=== PATIENT | male | born 1945 | race Caucasian/White ===

== ENCOUNTER → 2019-05-30 11:19 | Outpatient (CLI) | payer MEDICARE, OTHER, SELFPAY ==
--- NOTE | ~2019-05-30 | XR_ITS ---
XR chest 2V DATE: 05/30/2019 11:38 INDICATION: Pneumonia TECHNIQUE: 2 views COMPARISON: 09/25/2003 AP chest FINDINGS: Mild cardiomegaly. No hilar or mediastinal enlargement. No pulmonary infiltrate or consolid ation, pleural effusion or pulmonary vascular congestion or pneumothorax. Diffuse osteopenia. IMPRESSION: Mild cardiac megaly No active pulmonary disease Reviewed, dictated and finalized at location B.
== END ==
PROVIDERS: PCP Family Medicine; Visit Provider Family Medicine
DX: J18.9 Pneumonia, unspecified organism (principal); I51.7 Cardiomegaly
CPT/HCPCS: 71046

== ENCOUNTER → 2020-04-10 08:44 | Outpatient (CLI) | payer MEDICARE, OTHER, SELFPAY ==
--- NOTE | ~2020-04-10 | US_ITS ---
. EXAMINATION: US aorta [facility] scrn DATE: 04/10/2020 09:04 INDICATION: Abdominal aortic aneurysm screening. TECHNIQUE: Grayscale, color Doppler, and pulsed Doppler images of the aorta and common iliac arteries were obtained. COMPARISON: Lumbar spine MRI 01/13/2015 FINDINGS: The aorta demonstrates a 3.8 cm fusiform suprarenal aneurysm. The infrarenal aorta is normal in calib er. The right common iliac artery measures 1.7 cm. The left common iliac artery measures 1.5 cm. IMPRESSION: 1. 3.8 cm suprarenal fusiform aortic aneurysm. Reviewed, dictated and finalized at location A. [employer]
== END ==
PROVIDERS: PCP Internal Medicine; Visit Provider Internal Medicine
DX: Z13.6 Encounter for screening for cardiovascular disorders (principal); I71.9 Aortic aneurysm of unspecified site, without rupture
CPT/HCPCS: 76706

== ENCOUNTER 2020-05-09 13:51 | Outpatient (CLI) | payer MEDICARE, OTHER, SELFPAY ==
--- NOTE | 2020-05-09 14:00 | ECG_ITS ---
Measurements Intervals [place] Rate: 60 P: 91 MO: 258 QRS: 3 QRSD: 105 T: 36 QT: 395 QTc: 395 Interpretive Statements SINUS RHYTHM WITH FIRST DEGREE AV BLOCK DELAYED PRECORDIAL R/S TRANSITION BASELINE ARTIFACT- I, II, III, AVR, AVL, AVF ABNORMAL ECG Electronically Signed On 05-09-2020 14:20:48 ANALYSIS OR RESEARCH SAFETY INSPECTOR by Olivier Roman D.O.
== END 2020-05-09 13:52 | disposition home or self-care (01) ==
LOC: ANHSURGERY 13:57
PROVIDERS: PCP Internal Medicine; Visit Provider Urology
DX: C61 Malignant neoplasm of prostate (principal); E78.5 Hyperlipidemia, unspecified; Z01.818 Encounter for other preprocedural examination; I44.0 Atrioventricular block, first degree
CPT/HCPCS: 87086; 93005

== ENCOUNTER → 2020-05-10 01:35 | Outpatient (CLI) | payer MEDICARE, OTHER, SELFPAY ==
[2020-05-10 19:42] LABS: SARS-CoV-2 RNA PCR Negative
== END ==
PROVIDERS: PCP Internal Medicine; Visit Provider Urology
DX: Z01.812 Encounter for preprocedural laboratory examination (principal); Z20.822 Contact with and (suspected) exposure to COVID-19
CPT/HCPCS: C9803; U0003; U0005

== ENCOUNTER 2020-05-13 02:17 | Day surgery (SDC) | payer MEDICARE, OTHER, SELFPAY ==
[2020-05-08 14:22] VITALS: BMI 26.9
[2020-05-13] VITALS (7 sets, daily range): BP systolic 140–174; BP diastolic 73–85; PULSE 48–63; RESP 10–20; TEMP 36.4; O2SAT 97–100
--- NOTE | 2020-05-13 07:59 | WPDANESEPPF ---
Anes - Initial Pre Proc Eval Procedure: Operation Date: 05/13/20 10:30 Proposed Procedures p Insertion SpaceOAR Hydrogel System - Leobardo Moss MD Date/Time: 05/13/20 07:59 Surgeon: Leobardo Moss MD Pre Op Diagnosis: Prostate Cancer Patient Data Age: 75 Gender: M Height: 1.83 m Weight: 90 kg Allergies Allergy/AdvReac Type Severity Reaction Status Date / Time No Known Allergies Allergy Verified 05/13/20 08:45 Home Medications Medication Instructions Recorded Confirmed Type apremilast 30 mg tablet 30 mg PO DAILY tablet 04/07/20 05/13/20 History atorvastatin 10 mg tablet 10 mg PO DAILY #90 tablet 04/07/20 05/13/20 Rx mirabegron 25 mg tablet,extended 25 mg PO DAILY #90 tablet 04/07/20 05/13/20 Rx release 24 hr omeprazole 40 mg capsule,delayed 40 mg PO DAILY #90 cap 04/07/20 05/13/20 Rx release apremilast 30 mg PO DIRECTED 05/08/20 05/13/20 History escitalopram oxalate 20 mg PO QAM 05/08/20 05/13/20 History finasteride 5 mg PO HS 05/08/20 05/13/20 History terazosin 2 mg PO DAILY 05/08/20 05/13/20 History Patient hx anesthesia problems: none Family hx anesthesia problems: none PMFSH Past Medical History Medical History (Updated 05/13/20 @ 08:00 by Keaton Anne MD) BPH (benign prostatic hyperplasia) Depression Dyslipidemia GERD (gastroesophageal reflux disease) History of nicotine use Hypovitaminosis D Overweight (BMI 25.0-29.9) Prostate cancer Psoriasis Family History Family History (Updated 11/08/13 @ 07:13 by DOCTOR UNKNOWN) Father Family history of heart disease in male family member before age 55 Other Family history of cardiovascular disease Social History Social History Smoking packs per day: 1 Smoking cigarettes per day: 20.0 Years smoked: 7 Smoking pack-years: 7.00 Smoking status: Former smoker Tobacco type: cigarettes Smoking end date: 09/11/70 Alcohol intake: current Drinks per week: 14 Alcohol use details: WINE Substance use: never Living arrangements: with family Additional living arrangements comments: Spiritual care concerns: No Anes - Eval Final PreProcedure Day of Procedure 05/13/20 07:59 Patient weight: overweight Heart: regular rate and rhythm Lungs: clear to auscultation and normal air movement Airway: Mallampati scale class II Neurological: alert and oriented Last oral intake: >/= 8 hours ASA classification: III Emergent: no Anesthetic plan: proceed Anesthesia type and monitoring: general LMA Informed Consent: The patient's anesthetic plan and its attendant risks and benefits were discussed with the patient/family/POA. Questions were solicited and answers provided to the satisfaction of the patient/family/POA.
--- NOTE | 2020-05-13 09:05 | WPDHPUPDATE1 ---
History and Physical Update Update Date/Time: 05/13/20 09:05 History and Physical has been reviewed, including an updated exam of the patient. There are NO changes in the patient's condition. Risks, benefits, and alternatives have been discussed and questions answered. Patient agrees to proceed with procedure. Proceed with Space Oar
[2020-05-13] MEDS: LACTATED RINGERS 1,000 ML 30 ML IV CONT (09:11)
[2020-05-13] MEDS: ceFAZolin 2 GM/D5W 50 ML 2 GM/50 ML BAG IVPB (10:15)
--- NOTE | 2020-05-13 10:37 | PM.PROC ---
Procedure Note - Detailed Date of procedure: 05/13/20 Pre-op diagnosis: Prostate Cancer Post-op diagnosis: same Procedure performed: Space Oar placement Description of procedure: Patient is taken the operative suite and correctly identified. Once anesthesia was obtained he is placed in dorsal lithotomy position and prepped and draped usual sterile fashion. Transrectal ultrasound was then performed. The prostate is visualized in both the sagittal and transverse planes. Spinal needle was then inserted in the plane between the prostate and the rectum. Once cc of saline was then injected there was good separation. Aspiration revealed no blood. We then exchanged this for the prior prepared spaceOar mixture. This was then injected under direct vision. There was good separation. Patient tolerated procedure well without any complication is taken recovery stable condition. Anesthesia: GLMA Surgeon: Leobardo Moss MD Drains: No Packing: No Pathology: none sent Complications: No immediate complications Condition: stable Disposition: PACU
== END 2020-05-13 12:04 | disposition home or self-care (01) ==
PROVIDERS: PCP Internal Medicine; Visit Provider Urology
PROC: (CPT 55874; principal; 2020-05-13 10:30)
DX: C61 Malignant neoplasm of prostate (principal); E78.5 Hyperlipidemia, unspecified; K21.9 Gastro-esophageal reflux disease without esophagitis; F32.9 Major depressive disorder, single episode, unspecified; L40.9 Psoriasis, unspecified; Z87.891 Personal history of nicotine dependence
CPT/HCPCS: 55874; A9270; C1889; J0690; J1100; J2405; J2704; J3010; J7120

== ENCOUNTER 2020-05-27 09:48 | Outpatient (CLI) | payer MEDICARE, OTHER, SELFPAY ==
--- NOTE | ~2020-05-27 | MR_ITS ---
EXAMINATION: MR pelvis wo/w con DATE: 05/27/2020 11:46 INDICATION: Prostate cancer TECHNIQUE: Magnetic resonance imaging (MRI) of the pelvis was performed without and with 17 mL Multih ance intravenous contrast. Fullfield sequences of the pelvis included axial T2-weighted SS FSE, timmy nal and coronal T2-weighted SS FS FSE, axial and coronal 2D FIESTA FS, 3-D axial T2 Cube, axial SSFSE -IR JUAN FRANCISCO, axial dual-echo T1-weighted FSPGR, axial and coronal T1 weighted LAVA, axial diffusion-weig hted SE with apparent diffusion coefficient (ADC) maps. Postcontrast sagittal and coronal T1-weighte d LAVA and time course of axial T1-weighted LAVA. COMPARISON: None. FINDINGS: Metallic magnetic field artifact associated with a likely fixation pins extending from medial to late ral across the right sacroiliac joint. Enlarged prostate with heterogeneous enhancement and T2 signal . There is a lenticular region of nonenhancing increased T2 signal situated between the posterior mar gin of the prostate and seminal vesicles and the anterior wall of the rectum likely representing a hy drogel spacer. This measures 5.4 cm craniocaudally, 4.3 cm left right and 1.6 cm in maximal AP thickn ess. The hydrogel is slightly eccentrically positioned, centered and slightly thicker to the right of midline where the separation between the prostate and rectum averages a relatively consistent 12 mm in thickness. The separation is less to the left of midline where it averages approximately 5 mm with minimal separation between the left posterior inferior margin of the prostate and anterior wall of t he rectum. Bladder is normal. Multiple diverticula along the sigmoid colon without adjacent inflammat ory change to suggest diverticulitis. No free fluid in the pelvis. No pathologically enlarged pelvic or inguinal lymphadenopathy. Suggestion of a prior left inguinal hernia repair, correlate with surgic al history. Small bilateral hydroceles. Severe lower lumbar spondylosis. Normal marrow signal through out with pathologic marrow replacing process. IMPRESSION: 1. Likely hydrogel spacer the enlarged, heterogeneous and reportedly malignant prostate fr om the anterior wall of the rectum with somewhat asymmetric separation as detailed above. No evident metastatic disease. Reviewed, dictated and finalized at location B. IMPRESSION: 1. Likely hydrogel spacer the enlarged, heterogeneous and reportedly malignant prostate from the anterior wall of the rectum with somewhat asymmetr ic separation as detailed above. No evident metastatic disease.
[2020-05-27 10:34] LABS: Estimated Glomerular Filt Rate > 60
== END 2020-05-27 09:49 | disposition home or self-care (01) ==
PROVIDERS: PCP Internal Medicine; Visit Provider Radiology Radiation Oncology
DX: C61 Malignant neoplasm of prostate (principal)
CPT/HCPCS: 72197; A9577

== ENCOUNTER → 2020-10-13 09:37 | Outpatient (REF) | payer MEDICARE, OTHER, SELFPAY | LOC: ANHLAB 09:37 | PROVIDERS: PCP Internal Medicine; Visit Provider Nurse Practitioner | DX: C44.319 Basal cell carcinoma of skin of other parts of face (principal) | CPT/HCPCS: 88305; 88331 ==

== ENCOUNTER 2021-05-25 15:06 | Outpatient (CLI) | payer MEDICARE, OTHER, SELFPAY ==
--- NOTE | ~2021-05-25 | CT_ITS ---
EXAMINATION: CT brain wo con DATE: 05/25/2021 15:26 INDICATION: Headache. TECHNIQUE: Computed tomography (CT) of the head was performed without intravenous contrast. The dose- length product was 605.33 mGy-cm. Automated exposure control and iterative reconstruction technique w ere employed. COMPARISON: None FINDINGS: Brain parenchymal volume is normal for age. There are scattered mild periventricular and bronson bcortical white matter changes, most likely related to small vessel ischemic disease (microangiopathy ). No ventriculomegaly or midline shift. Basilar cisterns are patent. There is mild mucosal thickenin g of the ethmoid air cells. No air-fluid levels. No mucoperiosteal reaction. Mastoids are pneumatized . No depressed skull fractures. No acute intracranial infarction, hemorrhage or mass. IMPRESSION: 1. No acute intracranial abnormality. 2: Chronic age-related findings. Reviewed, dictated and finalized at location B.
== END 2021-05-25 15:07 | disposition home or self-care (01) ==
LOC: ANHIMG 15:09
PROVIDERS: PCP Internal Medicine; Visit Provider Internal Medicine
DX: R68.89 Other general symptoms and signs (principal); F03.90 Unspecified dementia, unspecified severity, without behavioral disturbance, psychotic disturbance, mood disturbance, and anxiety
CPT/HCPCS: 70450

== ENCOUNTER 2023-06-23 10:18 | Day surgery (SDC) | payer MEDICARE, OTHER, SELFPAY ==
[2023-06-08 10:30] VITALS: BMI 28.6
[2023-06-10 11:24] VITALS: BMI 28.2
[2023-06-23 10:42] VITALS: BP 129/74; PULSE 62; RESP 18; TEMP 36.7; O2SAT 95
[2023-06-23] MEDS: LACTATED RINGERS 1,000 ML 150 ML IV CONT (10:45)
--- NOTE | 2023-06-23 11:01 | WPDANESEPPF ---
Anes - Initial Pre Proc Eval Procedure: Operation Date: 06/23/23 12:00 Proposed Procedures p Screening Colonoscopy - Lamberto Maldonado MD Date/Time: 06/23/23 11:01 Surgeon: Lamberto Maldonado MD Pre Op Diagnosis: Neoplasm Screening Patient Data Age: 78 Gender: M Height: 1.83 m Weight: 91 kg Last Vital Signs Temp 36.7 C 06/23/23 10:42 Pulse 62 06/23/23 10:42 Resp 18 06/23/23 10:42 BP 129/74 06/23/23 10:42 Pulse Ox 95 06/23/23 10:42 O2 Del Method Room Air 06/23/23 10:42 Allergies Allergy/AdvReac Type Severity Reaction Status Date / Time No Known Allergies Allergy Verified 06/23/23 10:41 Home Medications Medication Instructions Recorded Confirmed Type apremilast 30 mg tablet (Otezla) 30 mg PO DAILY 04/07/20 06/23/23 History finasteride 5 mg tablet 5 mg PO HS 05/08/20 06/23/23 History terazosin 2 mg capsule 2 mg PO DAILY 05/08/20 06/23/23 History donepezil 5 mg tablet 5 mg PO QHS #90 tabs 08/27/22 06/10/23 Rx omeprazole 40 mg capsule,delayed 40 mg PO DAILY #90 caps 11/26/22 06/23/23 Rx release oxybutynin chloride 5 mg tablet 5 mg PO DAILY 11/26/22 06/23/23 History tamsulosin 0.4 mg capsule 0.4 mg PO DAILY 11/26/22 06/23/23 History amlodipine 5 mg tablet 5 mg PO DAILY 06/07/23 06/23/23 History atorvastatin 10 mg tablet 10 mg PO DAILY 06/10/23 06/23/23 History escitalopram oxalate 10 mg tablet 10 mg PO DAILY 06/10/23 06/23/23 History losartan 50 mg tablet 50 mg PO DAILY 06/10/23 06/23/23 History Patient hx anesthesia problems: none Family hx anesthesia problems: none Results Review: All pre-operative results and documents have been reviewed as part of the pre-operative evaluation. [facility] Past Medical History Medical History BPH (benign prostatic hyperplasia) Depression Dyslipidemia GERD (gastroesophageal reflux disease) History of nicotine use Hypovitaminosis D Overweight (BMI 25.0-29.9) Prostate cancer Psoriasis Family History Family History Father Family history of heart disease in male family member before age 55 Other Family history of cardiovascular disease Social History Social History Smoking packs per day: 1 Smoking cigarettes per day: 20.0 Years smoked: 7 Smoking pack-years: 7.00 Smoking status: Former smoker Tobacco type: cigarettes Smoking end date: 09/11/70 Alcohol intake: current Drinks per week: 14 Alcohol use details: beer Substance use: never Substance use type: does not use Lack of Transportation: No Lack of Food: Never True Current Housing: I Have Housing Concerned About Future Housing: No Difficulty Paying Gas/Electric Bills: No Difficulty Paying for Meds: No Currently Unemployed: No Education: Trade/Vocational Certificate Difficulty w/ Childcare or Family Care: No Living arrangements: with family Additional living arrangements comments: Spiritual care concerns: No Anes - Eval Final PreProcedure Day of Procedure 06/23/23 11:01 Patient weight: overweight Heart: regular rate and rhythm Lungs: clear to auscultation Airway: Mallampati scale class II Neurological: alert and oriented Last oral intake: >/= 8 hours ASA classification: III Emergent: no Anesthetic plan: proceed Anesthesia type and monitoring: general GIVS and standard monitoring Results Review: All pre-operative results and documents have been reviewed as part of the pre-operative evaluation. Informed Consent: The patient's anesthetic plan and its attendant risks and benefits were discussed with the patient/family/POA. Questions were solicited and answers provided to the satisfaction of the patient/family/POA.
--- NOTE | 2023-06-23 11:37 | PM.HPGS ---
History of Present Illness History of Present Illness Consent: Risks, benefits, and alternatives have been discussed and questions answered. Patient agrees to proceed with procedure. Chief complaint: Neoplasm Screening Narrative: Dragan Jean is a 78 year old male presents for screening colonoscopy. Previous colonoscopy 10 years ago was unremarkable. Patient reports his current weight appetite and bowel movements are normal. Patient denies abdominal pain. He has had no bleeding. Family history is noncontributory. Review of Systems Review of Systems: All systems reviewed & are unremarkable except as noted in HPI and below PMFSH Past Medical History Medical History BPH (benign prostatic hyperplasia) Depression Dyslipidemia GERD (gastroesophageal reflux disease) History of nicotine use Hypovitaminosis D Overweight (BMI 25.0-29.9) Prostate cancer Psoriasis Family History Family History Father Family history of heart disease in male family member before age 55 Other Family history of cardiovascular disease Social History Social History Smoking packs per day: 1 Smoking cigarettes per day: 20.0 Years smoked: 7 Smoking pack-years: 7.00 Smoking status: Former smoker Tobacco type: cigarettes Smoking end date: 09/11/70 Alcohol intake: current Drinks per week: 14 Alcohol use details: beer Substance use: never Substance use type: does not use Lack of Transportation: No Lack of Food: Never True Current Housing: I Have Housing Concerned About Future Housing: No Difficulty Paying Gas/Electric Bills: No Difficulty Paying for Meds: No Currently Unemployed: No Education: Trade/Vocational Certificate Difficulty w/ Childcare or Family Care: No Living arrangements: with family Additional living arrangements comments: Spiritual care concerns: No Meds Home Medications and Allergies Home Medications Medication Instructions Recorded Confirmed Type apremilast 30 mg tablet (Otezla) 30 mg PO DAILY 04/07/20 06/23/23 History finasteride 5 mg tablet 5 mg PO HS 05/08/20 06/23/23 History terazosin 2 mg capsule 2 mg PO DAILY 05/08/20 06/23/23 History donepezil 5 mg tablet 5 mg PO QHS #90 tabs 08/27/22 06/10/23 Rx omeprazole 40 mg capsule,delayed 40 mg PO DAILY #90 caps 11/26/22 06/23/23 Rx release oxybutynin chloride 5 mg tablet 5 mg PO DAILY 11/26/22 06/23/23 History tamsulosin 0.4 mg capsule 0.4 mg PO DAILY 11/26/22 06/23/23 History amlodipine 5 mg tablet 5 mg PO DAILY 06/07/23 06/23/23 History atorvastatin 10 mg tablet 10 mg PO DAILY 06/10/23 06/23/23 History escitalopram oxalate 10 mg tablet 10 mg PO DAILY 06/10/23 06/23/23 History losartan 50 mg tablet 50 mg PO DAILY 06/10/23 06/23/23 History Allergies Allergy/AdvReac Type Severity Reaction Status Date / Time No Known Allergies Allergy Verified 06/23/23 10:41 Vital Signs Vital Signs - 24 hr 06/23/23 10:42 Temperature 98.1 F Pulse Rate 62 Respiratory Rate 18 Blood Pressure 129/74 Pulse Oximetry 95 Oxygen Delivery Room Air Exam Narrative: Physical exam reveals patient to be alert. Vital signs stable. HEENT exam is unremarkable. Patient is anicteric. Lungs are clear to auscultation and percussion. Heart is without murmur or extra sounds. Abdomen bowel sounds are present soft nontender with no organomegaly. Digital external rectal exam is normal. Assessment and Plan Assessment and plan (1) Encounter for screening colonoscopy: Code(s): Z12.11 - Encounter for screening for malignant neoplasm of colon Status: Acute Assessment and Plan: Patient presents today for screening colonoscopy. He appears to be at average risk for colon polyps.
[2023-06-23 12:26] VITALS: BP 111/73; PULSE 67; RESP 14; O2SAT 95
[2023-06-23 12:36] VITALS: BP 126/80; PULSE 57; RESP 14; O2SAT 97
--- NOTE | 2023-06-23 12:38 | WPDANESPN ---
Anes - Prog Note Post-Op Date/Time: 06/23/23 12:38 Cardiovascular status: normal Respiratory status: normal Airway patency: baseline Mental status: baseline Post-Op hydration status: normal Vital Signs: Last Vital Signs Temp 36.7 C 06/23/23 10:42 Pulse 62 06/23/23 10:42 Resp 18 06/23/23 10:42 BP 129/74 06/23/23 10:42 Pulse Ox 95 06/23/23 10:42 O2 Del Method Room Air 06/23/23 10:42 Pain Score (VAS): 0/10 I/O: Intake & Output 06/22/23 06/23/23 06/23/23 23:59 07:59 15:59 Intake Total 300 Balance 300 Patient Feedback: Patient satisfied with anesthetic care.
[2023-06-23 12:46] VITALS: BP 148/80; PULSE 60; RESP 16; O2SAT 98
== END 2023-06-23 13:04 | disposition home or self-care (01) ==
PROVIDERS: PCP Nurse Practitioner; Visit Provider Internal Medicine Gastroenterology
PROC: 0DJD8ZZ Inspection of Lower Intestinal Tract, Via Natural or Artificial Opening Endoscopic (ICD-10-PCS; CPT 45378; principal; 2023-06-23 12:00)
DX: Z12.11 Encounter for screening for malignant neoplasm of colon (principal); K57.30 Diverticulosis of large intestine without perforation or abscess without bleeding; K64.8 Other hemorrhoids
CPT/HCPCS: G0121